=== PATIENT | female | born 1970 | race Caucasian/White ===

== ENCOUNTER 2021-07-16 10:11 | Day surgery (SDC) | payer OTHER ==
[2021-07-16] MEDS ORDERED: Lactated Ringers 1,000 ML IV SCH (10:30)
[2021-07-16] MEDS ORDERED: Lactated Ringers 1,000 ML IV ONE (10:43)
[2021-07-16] MEDS ORDERED: Versed 2 MG/2 ML Injection ONE (11:42)
[2021-07-16] MEDS ORDERED: Xylocaine-Mpf 2% 5 Ml Vial ONE (11:42)
[2021-07-16] MEDS ORDERED: DIPRIVAN 200 MG/20 ML IV ONE ×5 (11:42→12:49)
[2021-07-16] MEDS ORDERED: GlucaGen 1 MG ONE ×2 (12:25→12:46)
[2021-07-16 13:26] VITALS: O2SAT 99
[2021-07-16 13:46] VITALS: BP 151/92; PULSE 67
--- NOTE | 2021-07-17 08:04 | OP ---
PROCEDURE DATE/TIME: 07/16/2021 1145 PREOPERATIVE DIAGNOSES: 1) Reflux disease. 2) Due for screening colonoscopy. POSTOPERATIVE DIAGNOSES: 1) Mild gastroesophageal reflux disease with mild reflux esophagitis-gastritis moderate). 2) Diverticulosis. 3) Colonic polyp. 4) Anterior anal tag. 5) Mild hemorrhoidal disease. 6) Mild possible sigmoid colitis. PROCEDURES: 1) EGD with biopsy. 2) Colonoscopy with hot snare polypectomy and clip placement. 3) Cold forceps biopsy. PROCEDURE PERFORMED BY: Katerine Huntley M.D. ANESTHESIA: MAC. ESTIMATED BLOOD LOSS: Minimal. COMPLICATIONS: None. SPECIMENS: 1) Antral biopsy. 2) Gastric body biopsy. 3) Distal esophagus biopsy. 4) Mild sigmoid erythema biopsy, sigmoid polyp at 25 cm. 5) Rectosigmoid polyp. HISTORY: This is a patient who presents for EGD and colonoscopy. Risks, benefits, alternatives, H&P, consent reviewed and confirmed. DESCRIPTION OF PROCEDURE: She was then brought back to the endoscopy suite. Laid in the left lateral decubitus position. A complete time out performed. First, the scope was gently inserted into the mouth, oropharynx, down into the esophagus, stomach and duodenum. The duodenum is normal. In the stomach the antrum has linear erythema and then in the mid and lower body of her stomach she has more prominent moderate gastritis with erythema as well as subtle very superficial erosions and nodularity. Both the antrum and body at the sites of erythema were biopsied and sent to pathology. Everything looked benign. Everything looked hemostatic. I see no tumors, no concerning findings here. On retroflex, the hiatus was visualized. There is no large hiatal hernia. Her cardia appears to be healthy. The scope was unretroflexed. All sites are then confirmed to be hemostatic. The scope is carefully withdrawn into the distal esophagus. In the distal esophagus, her mucosa is slightly irregular. She has two columns of less than 1 cm with mild reflux esophagitis that were biopsied in a targeted manner. Both sites hemostatic and then the scope was completely withdrawn. The remainder of the esophagus looked normal. Gastroesophageal junction at 39 cm. The patient tolerated it well. There were no complications. She was then repositioned for colonoscopy. First, a rectal exam was done. She has a very benign appearing, small anterior anal tag. She also has some mild external hemorrhoidal disease. The scope was then inserted and gently advanced to the level of the cecum. We did use some gentle abdominal pressure to navigate the scope from the ascending colon to the cecum. She has a relatively sharp hepatic flexure. Once in the cecum, there was quite a bit of staining. We irrigated copiously. Her ileocecal valve as well as her appendiceal orifice were clearly visualized and irrigated free. We took a good look at the cecum and then carefully withdrew the scope. At least 90% of the mucosa was visualized but again there was staining and so very small lesions could be missed due to the prep. The scope is further withdrawn. Ascending and transverse colon looked normal. The proximal descending colon looked normal. The distal descending as well as the sigmoid had multiple diverticula. There was also some erythema at approximately 30 cm that extended for about 10 cm, very subtle erythema diffusely. No other signs of inflammation and none of this were by pits. These sites were biopsied and sent to pathology as "Mild sigmoid erythema". She also had two polyps one at 25 cm that was about 1.2 cm with a broad base and this was semi-pedunculated but again the base looked quite broad here this was taken with a 20 snare with a hot snare. This looked excellent after removal and then a clip was placed here which looked very good. The entire polyp was retrieved and sent to pathology. There was another polyp in the rectosigmoid region of about 5 to 6 mm taken with hot snare in entirety and the site looked good. The scope was then fully removed. The patient tolerated the procedure very well. There were no immediate complications. She is going to be following up in my office for her results as an outpatient. I have discussed all of her findings and instructions with her family. Tentative plan for next colonoscopy will be in two to three years and tentative plan for EGD will be as needed. Final recommendations will be based on her final pathology report.
== END 2021-07-16 13:50 | disposition home or self-care (01) ==
LOC: SDC 10:11
PROVIDERS: ATTEND Surgery
DX: Z12.11 Encounter for screening for malignant neoplasm of colon (principal); K21.9 Gastro-esophageal reflux disease without esophagitis; K57.30 Diverticulosis of large intestine without perforation or abscess without bleeding; K64.4 Residual hemorrhoidal skin tags; K29.70 Gastritis, unspecified, without bleeding; K20.90 Esophagitis, unspecified without bleeding; D12.5 Benign neoplasm of sigmoid colon
CPT/HCPCS: 84703; J1610; J2250; J2704